=== PATIENT | female | born 1995 | race Caucasian/White ===

== ENCOUNTER 2018-10-18 19:04 | Emergency (ER) | payer OTHER, MEDICAID ==
[~2018-10-18] VITALS: Ht 165.1 cm; Wt 95.7 kg
--- NOTE | 2018-10-18 19:35 | NUR ---
PT UP TO RR WITH STEADY GAIT.
--- NOTE | 2018-10-18 19:40 | NUR ---
URINE SAMPLE TAKEN TO LAB
--- NOTE | 2018-10-18 19:44 | NUR ---
pt resting on [employer], monitors in place, siderails up x2, call light within reach. awaiting lab results
[2018-10-18 19:57] LABS: CULTURE INDICATED? YES; MICROSCOPIC INDICATED
[2018-10-18 20:04] LABS: BASOPHILS # (AUTO) 0.03 x10^3/uL (0-0.1); BASOPHILS % (AUTO) 0 % (0-1); EOSINOPHILS # (AUTO) 0.49 x10^3/uL (0-0.4); EOSINOPHILS % (AUTO) 4 % (1-7); LYMPHOCYTES # (AUTO) 2.79 x10^3/uL (1-3.4); LYMPHOCYTES % (AUTO) 20 % (22-44); MD NO; MEAN CORPUSCULAR HEMOGLOBIN 23.3 pg (27.0-34.8); MEAN CORPUSCULAR HGB CONC 32.6 g/dL (32.4-35.8); MEAN CORPUSCULAR VOLUME 71.6 fL (80-100); MEAN PLATELET VOLUME 9.3 fL (7.4-10.4); MONOCYTES # (AUTO) 1.04 x10^3/uL (0.2-0.8); MONOCYTES % (AUTO) 8 % (2-9); NEUTROPHILS # (AUTO) 9.46 x10^3/uL (1.8-6.8); NEUTROPHILS % (AUTO) 69 % (42-75); PLATELET COUNT 335 x10^3/uL (130-400); RED BLOOD COUNT 5.01 x10^6/uL (3.82-5.3); RED CELL DISTRIBUTION WIDTH 18.1 % (9.6-15.2)
[2018-10-18 20:08] LABS: ALANINE AMINOTRANSFERASE 16 U/L (12-78); ALBUMIN 3.3 g/dL (3.4-5.0); ANION GAP 6 mmol/L (5-15); CALCIUM 7.9 mg/dL (8.5-10.1); CHLORIDE 108 mmol/L (98-107); CREATININE 0.78 mg/dL (0.55-1.02)
[2018-10-18 20:13] LABS: ALKALINE PHOSPHATASE 114 U/L (45-117); BILIRUBIN,TOTAL 0.2 mg/dL (0.2-1.0); TOTAL PROTEIN 7.3 g/dL (6.4-8.2)
--- NOTE | 2018-10-18 20:36 | NUR ---
PT RESTING ON GURNEY, MONITORS IN PLACE, CALL LIGHT WITHIN REACH, DENIES NEEDS A TTHIS TIME. AWAITING ULTRASOUND
--- NOTE | 2018-10-18 20:37 | NUR ---
ULTRASOUND CALLED REGARDING ORDER, STATED THEY'RE AWARE AND WILL BE HERE SOON. PT UPDATED AND DENIES NEEDS AT THIS TIME.
[2018-10-18 21:28] VITALS: BP 111/69
--- NOTE | 2018-10-18 21:29 | NUR ---
PT RESTING CALMLY, DENIES NEEDS, MONITORS IN PLACE, CALL LIGHT WITHIN REACH. CHART UP FOR RECHECK
[2018-10-18] MEDS ORDERED: NITROFURANTOIN (MACROBID) 100 MG CAPSULE PO ONE (21:30)
[2018-10-18] MEDS ORDERED: NITROFURANTOIN (MACROBID) 100 MG CAPSULE ONE (21:33)
--- NOTE | 2018-10-18 21:35 | NUR ---
PT MEDICATED PER MAR
== END 2018-10-18 21:52 | disposition home or self-care (01) ==
LOC: ED 20:12
DX: N30.00 Acute cystitis without hematuria (principal)
CPT/HCPCS: 36415; 76770; 80053; 81001; 83690; 84703; 85025; 87077; 87086; 87147; 87186; 99284